=== PATIENT | male | born 1995 | race Caucasian/White ===

== ENCOUNTER → 2017-10-08 | Outpatient (CLI) | payer BC ==
[~2017-10-08] MED LIST: IOHEXOL 240 MG/ML 50ML VIAL. ONE; IOHEXOL 240 MG/ML 50ML VIAL. PO ONE; IOHEXOL 300 MG/ML 75 ML VIAL. IV ONE
--- NOTE | 2017-10-08 12:44 | RAD ---
PQRS Compliance Statement: One or more of the following individualized dose reduction techniques were utilized for this examination: 1. Automated exposure control 2. Adjustment of the mA and/or kV according to patient size 3. Use of iterative reconstruction technique CT abdomen/pelvis with contrast 10/08/2017 12:00 AM INDICATION: Right lower quadrant abdominal pain for 2 weeks COMPARISON: None available TECHNIQUE: Multiple axial CT images of the abdomen and pelvis were obtained after the intravenous administration of 75 mL Omnipaque 300. Coronal and sagittal reformats are provided. FINDINGS: Visualized portions of the lung bases are clear. Heart size is within normal limits. No suspicious hepatic masses are identified. Liver is homogeneous in enhancement. Spleen, bilateral adrenal glands, and pancreas are normal in appearance. Gallbladder is present without adjacent inflammatory changes. The abdominal aorta is normal in course and caliber. There are no pathologically enlarged lymph nodes in the abdomen and pelvis. There is no abdominal free fluid. There is no free intraperitoneal air. The kidneys enhance symmetrically. There is no suspicious renal mass. There is no hydronephrosis. There are no suspected calculi within the kidneys, ureters or urinary bladder. Oral contrast was administered. Opacified bowel loops demonstrate normal mucosal fold pattern. Small and large bowel are normal in caliber. There is no evidence for bowel obstruction. There are no pericolonic inflammatory changes. A normal, nondilated appendix is visualized without adjacent inflammatory changes. The urinary bladder is within normal limits given degree of distention. Prostate and seminal vesicles are normal in appearance. No suspicious pelvic masses are identified. There are no suspicious osseous lesions identified. IMPRESSION: No evidence for bowel obstruction or inflammation. Appendix is normal. Electronically signed by: Yennifer Harper MD (10/08/2017 12:40 PM) [facility]– [place]
== END | disposition home or self-care (01) ==
LOC: CT 10:16
PROVIDERS: ATTEND Family Medicine
DX: R10.31 Right lower quadrant pain (principal)
CPT/HCPCS: 74177; Q9966; Q9967

== ENCOUNTER 2021-06-22 17:45 | Emergency (ER) | payer BC, OTHER ==
[~2021-06-22] VITALS: Ht 185.4 cm; Wt 70.0 kg
--- NOTE | 2021-06-22 18:21 | PHYS DOC ---
General Adult HPI: HPI: " Been having this pain for days now it is more severe to the day... Is constant and mild left upper and lower chest area. It is a dull ache. And will not go away.... I did have Covid in April even after I completed 2 of those COVID shots.." Patient is a 26 year old male who presents with above hx and complaints left chest wall and left upper abdomen pain. Pain does have some association with deep breaths and movement. Patient denies any trauma. Patient denies any fever or chills. Patient does have a chronic nonproductive cough which is attributed to allergies. His cough has gotten worse since his COVID infection in April. Patient denies any history of coagulopathy with himself or family members. There is a family history of autoimmune disorders including lupus. Patient denies any recent travel. No specific ill contacts. Pt. did complete two vaccination of Moderna- before developing COVID in April. Normally follows with Dr. Bermgan. Review of Systems: Review of Systems: Constitutional: Denies fever or chills Eyes: Denies change in visual acuity HENT: Denies nasal congestion or sore throat Respiratory: Complains of chronic cough since COVID, had cough previous due to allergies. Complains of left chest wall tenderness. Cardiovascular: Denies chest pain or edema GI: Complains of left upper quadrant abdominal pain. Denies, nausea, vomiting, bloody stools or diarrhea : Denies dysuria Musculoskeletal: Denies back pain or joint pain Integument: Denies rash Neurologic: Denies headache, focal weakness or sensory changes Endocrine: Denies polyuria or polydipsia Lymphatic: Denies swollen glands Psychiatric: Denies depression or anxiety Family History: Family History: History of autoimmune lupus and other autoimmune disorders Current Medications: Current Meds: See nursing for home Allergies: Allergies: Allergies Coded Allergies Type Severity Reaction Last Updated Verified No Known Drug Allergies 10/08/17 No Physical Exam: PE: Constitutional: Moderate acute distress, non-toxic appearance. [] HENT: Normocephalic, atraumatic, bilateral external ears normal, oropharynx moist, no oral exudates, nose normal. [] Eyes: PERRLA, EOMI, conjunctiva normal, no discharge. [] Neck: Normal range of motion, no tenderness, supple, no stridor. [] Cardiovascular:Heart rate regular rhythm, no murmur [] no rub appreciated Lungs & Thorax: Bilateral breath sounds apex breath sounds equal. Does have a few scattered wheezes. Does have left chest wall tenderness on palpation and deep cough. Abdomen: Bowel sounds normal, soft, some left upper quadrant tenderness, no ma sses, no pulsatile masses. [] Skin: Warm, dry, no erythema, no rash. [] Back: No tenderness, no CVA tenderness. [] Extremities: No tenderness, no cyanosis, no clubbing, ROM intact, no edema. No cording appreciated in extremities Neurologic: Alert and oriented X 3, normal motor function, normal sensory function, no focal deficits noted. [] Psychologic: Affect anxious , judgement normal, mood normal. [] EKG: EKG: My interpretation EKG shows a sinus rhythm at 70 bpm. No acute morphology. There is some inferior changes but do not appear to be pathological. But could represent pericardial inflammation. Time of EKG is 1804 hrs. [] My interpretation of second EKG shows a sinus rhythm at [address] changes consistent with STEMI. No acute interval changes. Labs the baseline inferior changes. Time of second EKG is 2354 hrs. Radiology/Procedures: Radiology/Procedures: [] Heart Score: C/O Chest Pain: Yes HEART Score for Chest Pain: HEART Score for Chest Pain Response (Comments) Value History Slighlty/Non-Suspicious 0 ECG Normal 0 Age < 45 0 Risk Factors 1 or 2 Risk Factors 1 Troponin < Normal Limit 0 Total 1 Risk Factors: Risk Factors: DM, Current or recent (<one month) smoker, HTN, HLP, family history of CAD, obesity. Risk Scores: Score 0 - 3: 2.5% MACE over next 6 weeks - Discharge Home Score 4 - 6: 20.3% MACE over next 6 weeks - Admit for Clinical Observation Score 7 - 10: 72.7% MACE over next 6 weeks - Early Invasive Strategies Course & Med Decision Making: Course & Med Decision Making Pertinent Labs and Imaging studies reviewed. (See chart for details) Patient take Tylenol ibuprofen for pain. Take a daily baby aspirin. Follow-up with primary care. Consider stress testing and follow-up with cardiology including a echo. With negative D-dimers and negative CKs and tropes x2 does not appear to have signficant carditis or pericardial inflammation. Patient did have Covid infection after completing 2 vaccinations with Moderna. Still may have some findings of pleural inflammation/pleuritis. Still has a chronic nonproductive cough since his COVID infection. Follow-up with primary and have them review ED record. Return if any concerns.. Impression: 1. Chest wall pain 2. Left upper quadrant abdomen pain 3. History of COVID infection in Apr. 4. Possible Covid sequela-pleurisy. 5. Hx. of Allergies- and chronic cough- prior the COVID infection [] Dragon Disclaimer: Dragon Disclaimer: This electronic medical record was generated, in whole or in part, using a voice recognition dictation system. Departure Departure: Referrals: JULES BERGMAN MD (PCP) Romulo Disclaimer This chart was dictated in whole or in part using Voice Recognition software in a busy, high-work load, and often noisy Emergency Department environment. It may contain unintended and wholly unrecognized errors or omissions. Dragon Disclaimer This chart was dictated in whole or in part using Voice Recognition software in a busy, high-work load, and often noisy Emergency Department environment. It may contain unintended and wholly unrecognized errors or omissions. Dragon Disclaimer This chart was dictated in whole or in part using Voice Recognition software in a busy, high-work load, and often noisy Emergency Department environment. It may contain unintended and wholly unrecognized errors or omissions. TITA SHAW MD Jun 22, 2021 18:21
[2021-06-22] MEDS ORDERED: ASPIRIN CHEWABLE 81 MG TABLET. PO ONE (18:30)
[2021-06-22] MEDS ORDERED: IV RINGERS SOLUTION,LACTATED 1,000 ML IV SCH (18:30)
[2021-06-22] MEDS ORDERED: KETOROLAC 30 MG/ML VIAL. IVP ONE (18:30)
[2021-06-22 18:39] LABS: BASO # 0.1 x10^3/uL (0.0-0.2); BASO % 1 % (0-3); EOS # 0.2 x10^3/uL (0.0-0.7); EOS % 3 % (0-3); HEMATOCRIT 40.9 % (39.0-53.0); HEMOGLOBIN 14.3 g/dL (13.0-17.5); LYMPH # 1.6 x10^3/uL (1.0-4.8); LYMPH % 23 % (24-48); MEAN CORPUSCULAR HEMOGLOBIN 30 pg (25-35); MEAN CORPUSCULAR HGB CONC 35 g/dL (31-37); MEAN CORPUSCULAR VOLUME 85 fL (79-100); MONO # 0.5 x10^3/uL (0.0-1.1); MONO % 7 % (0-9); NEUT # 4.5 x10^3uL (1.8-7.7); NEUT % 65 % (31-73); PLATELET COUNT 279 x10^3/uL (140-400); RED BLOOD COUNT 4.82 x10^6/uL (4.30-5.70); RED CELL DISTRIBUTION WIDTH 13.2 % (11.5-14.5); WHITE BLOOD COUNT 6.9 x10^3/uL (4.0-11.0)
[2021-06-22 18:47] LABS: CALCIUM 8.9 mg/dL (8.5-10.1); GFR 90.3; POTASSIUM 3.9 mmol/L (3.5-5.1)
[2021-06-22 19:00] LABS: ALBUMIN 4.2 g/dL (3.4-5.0); DIRECT BILIRUBIN 0.1 mg/dL (0.0-0.2); MAGNESIUM 2.1 mg/dL (1.8-2.4); TOTAL BILIRUBIN 0.4 mg/dL (0.2-1.0); TOTAL PROTEIN 7.1 g/dL (6.4-8.2)
--- NOTE | 2021-06-22 20:37 | RAD ---
Exam: Acute abdominal series INDICATION: Left-sided pain/pressure TECHNIQUE: Frontal view of the chest with upright and supine views of the abdomen Comparisons: None FINDINGS: Air and stool are noted throughout the colon to level the rectum in a nonobstructive bowel gas patter n. No suspicious masses or calcifications. Visualized osseous structures are unremarkable. IMPRESSION: Nonobstructive bowel gas pattern. Electronically signed by: Benita Coronado MD (06/22/2021 8:35 PM) [id number]
[2021-06-22 21:41] LABS: BARBITURATES NEG (NEG); BENZODIAZEPINES NEG (NEG); CANNABINOIDS NEG (NEG); COCAINE NEG (NEG); METHADONE NEG (NEG); OPIATES NEG (NEG); PHENCYCLIDINE NEG (NEG)
[2021-06-22 21:42] LABS: AMPHETAMINE/METHAMPHETAMINE NEG (NEG)
[2021-06-22 21:48] LABS: BACTERIA,URINE 0 /HPF (0-FEW); CLARITY,URINE CLEAR; COLOR,URINE YELLOW; GLUCOSE,URINE NEG (NEG); NITRITE,URINE NEG (NEG); RBC,URINE 0 /HPF (0-2); UROBILINOGEN,URINE 0.2 mg/dL (0.2 mg/dL); WBC,URINE 0 /HPF (0-4)
[2021-06-22 23:09] VITALS: BP 132/84
--- NOTE | 2021-06-23 02:40 | EKG ---
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
--- NOTE | 2021-06-23 02:44 | EKG ---
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
== END 2021-06-23 00:16 | disposition home or self-care (01) ==
LOC: ER 17:45
DX: R09.1 Pleurisy (principal); U09.9 Post COVID-19 condition, unspecified; R10.12 Left upper quadrant pain; R05.3 Chronic cough
CPT/HCPCS: 36415; 74022; 80048; 80076; 80307; 81001; 82150; 82550; 83690; 83735; 83880; 84443; 84484; 85025; 85379; 85610; 85730; 93005; 96361; 96374; 99285; J1885; J7120